=== PATIENT | male | born 1965 ===

== ENCOUNTER 2019-07-22 18:07 | Emergency (ER) | payer SELFPAY ==
--- NOTE | 2019-07-22 18:40 | Event Note ---
ED Screening Note Date of service: 07/22/19 Time: 18:42 ED Screening Note: 53 yo M with hx of HIV presents to ED with complaint of chest pain, fatigue, COURTNEY after using alcohol, crack cocaine, marijuana, synthetic marijuana, and unknown pills over the last 3 days. This initial assessment/diagnostic orders/clinical plan/treatment(s) is/are subject to change based on patients health status, clinical progression and re- assessment by fellow clinical providers in the ED. Further treatment and workup at subsequent clinical providers discretion. Patient/guardian urged not to elope from the ED as their condition may be serious if not clinically assessed and managed. Initial orders include: EKG Labs CXR
[2019-07-22 19:00] LABS: Basophils # (Auto) 0.1 K/mm3 (0.0-0.1); Basophils % (Auto) 1.1 % (0.0-1.8); Eosinophils % (Auto) 0.3 % (0.0-4.3); Hematocrit 42.2 % (35.5-45.6); Hemoglobin 14.5 gm/dl (11.8-15.2); Lymphocytes # (Auto) 3.6 K/mm3 (1.2-5.4); Lymphocytes % (Auto) 29.6 % (13.4-35.0); Mean Corpuscular HGB Conc 34 % (32-34); Mean Corpuscular Volume 92 fl (84-94); Monocytes # (Auto) 1.1 K/mm3 (0.0-0.8); Monocytes % (Auto) 9.2 % (0.0-7.3); Platelet Count 157 K/mm3 (140-440); Red Blood Count 4.58 M/mm3 (3.65-5.03); Red Cell Distribution Width 13.7 % (13.2-15.2)
[2019-07-22 19:12] LABS: INR 1.07 (0.87-1.13)
--- NOTE | 2019-07-22 19:26 | XRay Report ---
CHEST 2 VIEWS INDICATION / CLINICAL INFORMATION: chest pain. COMPARISON: None available. FINDINGS: SUPPORT DEVICES: None. HEART / MEDIASTINUM: No significant abnormality. LUNGS / PLEURA: No significant pulmonary or pleural abnormality. No pneumothorax. ADDITIONAL FINDINGS: No significant additional findings. IMPRESSION: No acute finding. Signer Name: Buck Baca MD Signed: 07/22/2019 7:22 PM Workstation Name: [id number]
[2019-07-22 19:27] LABS: BUN/Creatinine Ratio 17; Blood Urea Nitrogen 20 mg/dL (9-20); Calcium 9.3 mg/dL (8.4-10.2); Hemolysis Index 9
--- NOTE | 2019-07-22 22:47 | Emergency Department Report ---
ED General Adult HPI - General Chief complaint: Chest Pain Stated complaint: NERVE PAIN Time Seen by Provider: 07/22/19 21:37 Source: patient Mode of arrival: Wheelchair Limitations: No Limitations - History of Present Illness Initial comments: This is a 53-year-old male with a history of HIV, sciatic nerve pain, and vascular disease of the bilateral shoulders, anxiety, who presents to the ED today complaining of some chest discomfort which he experienced yesterday that is now resolved today. Patient states for the past 3 days he has been taking dr lita such as crack cocaine, marijuana, alcohol and some unknown pills he is unsure of. Patient states that he is experiencing bilateral lower back pain from sciatica and possibly an anxiety attack. Patient states he was brought here by EMS disease just recently moved here and is start currently staying with his sister. Patient denies fevers/chills/nausea/vomiting/abdominal pain/chest pain/shortness of breath/dizziness or any other symptoms - Related Data Allergies Allergy/AdvReac Type Severity Reaction Status Date / Time albuterol Allergy Shortness Verified 07/22/19 18:10 of Breath ED Review of Systems ROS: Stated complaint: NERVE PAIN Other details as noted in HPI Comment: All other systems reviewed and negative ED Past Medical Hx - Past Medical History Previous Medical History?: Yes Additional medical history: HIV/ SCIACTIA NERVE PAIN AVASCULAR DIESASE - Surgical History Additional Surgical History: BILATERAL SHOULDER SURG LYPMH NODES REMOVED - Social History Smoking Status: Current Every Day Smoker Substance Use Type: Alcohol, Cocaine, Marijuana, Other ED Physical Exam - General Limitations: No Limitations General appearance: alert, in no apparent distress - Head Head exam: Present: atraumatic, normocephalic - Eye Eye exam: Present: normal appearance - ENT ENT exam: Present: mucous membranes moist - Neck Neck exam: Present: normal inspection - Respiratory Respiratory exam: Present: normal lung sounds bilaterally. Absent: respiratory distress - Cardiovascular Cardiovascular Exam: Present: regular rate, normal rhythm. Absent: systolic murmur, diastolic murmur, rubs, gallop - GI/Abdominal GI/Abdominal exam: Present: soft, normal bowel sounds - Rectal Rectal exam: Present: deferred - Extremities Exam Extremities exam: Present: normal inspection - Back Exam Back exam: Present: normal inspection - Neurological Exam Neurological exam: Present: alert, oriented X3 - Psychiatric Psychiatric exam: Present: normal affect, normal mood - Skin Skin exam: Present: warm, dry, intact, normal color. Absent: rash ED Course Vital Signs 07/22/19 18:16 Temperature 97.7 F Pulse Rate 75 Respiratory 24 Rate Blood Pressure 104/72 O2 Sat by Pulse 96 Oximetry ED Medical Decision Making - Lab Data Result diagrams: 07/22/19 18:50 07/22/19 18:50 Laboratory Last Values WBC 12.3 K/mm3 (4.5-11.0) H 07/22/19 18:50 RBC 4.58 M/mm3 (3.65-5.03) 07/22/19 18:50 Hgb 14.5 gm/dl (11.8-15.2) 07/22/19 18:50 Hct 42.2 % (35.5-45.6) 07/22/19 18:50 MCV 92 fl (84-94) 07/22/19 18:50 MCH 32 pg (28-32) 07/22/19 18:50 MCHC 34 % (32-34) 07/22/19 18:50 RDW 13.7 % (13.2-15.2) 07/22/19 18:50 Plt Count 157 K/mm3 (140-440) 07/22/19 18:50 Lymph % (Auto) 29.6 % (13.4-35.0) 07/22/19 18:50 [place] % (Auto) 9.2 % (0.0-7.3) H 07/22/19 18:50 Eos % (Auto) 0.3 % (0.0-4.3) 07/22/19 18:50 Baso % (Auto) 1.1 % (0.0-1.8) 07/22/19 18:50 Lymph # 3.6 K/mm3 (1.2-5.4) 07/22/19 18:50 [place] # 1.1 K/mm3 (0.0-0.8) H 07/22/19 18:50 Eos # 0.0 K/mm3 (0.0-0.4) 07/22/19 18:50 Baso # 0.1 K/mm3 (0.0-0.1) 07/22/19 18:50 Seg Neutrophils % 59.8 % (40.0-70.0) 07/22/19 18:50 Seg Neutrophils # 7.4 K/mm3 (1.8-7.7) 07/22/19 18:50 PT 14.0 Sec. (12.2-14.9) 07/22/19 18:50 INR 1.07 (0.87-1.13) 07/22/19 18:50 APTT 26.0 Sec. (24.2-36.6) 07/22/19 18:50 Sodium 138 mmol/L (137-145) 07/22/19 18:50 Potassium 3.4 mmol/L (3.6-5.0) L 07/22/19 18:50 Chloride 99.2 mmol/L (98-107) 07/22/19 18:50 Carbon Dioxide 20 mmol/L (22-30) L 07/22/19 18:50 Anion Gap 22 mmol/L 07/22/19 18:50 BUN 20 mg/dL (9-20) 07/22/19 18:50 Creatinine 1.2 mg/dL (0.8-1.5) 07/22/19 18:50 Estimated GFR > 60 ml/min 07/22/19 18:50 BUN/Creatinine Ratio 17 % 07/22/19 18:50 Glucose 72 mg/dL (75-100) L 07/22/19 18:50 Calcium 9.3 mg/dL (8.4-10.2) 07/22/19 18:50 Troponin T < 0.010 ng/mL (0.00-0.029) 07/22/19 21:29 Plasma/Serum Alcohol < 0.01 % (0-0.07) 07/22/19 23:06 - Radiology Data Radiology results: report reviewed, image reviewed - Medical Decision Making This 53-year-old male who presents with multiple substance abuse presents to ED. Patient states labs are all within normal limits. Patient is refusing to give urine sample stating he does not want to. Patient received IV fluids, lorazepam in the ED. Patient was resting and sleeping comfortably in the ED bed after administration. Discussed the patient is to follow-up with primary care physician, infectious disease doctor for management of his HIV. Resource days was also given to patient to help with substance abuse. Vital signs are normal patient is in no acute distress. Is ambulatory without any problems. Patient is speaking in clear sentences. Patient had no neurological deficit. Critical care attestation.: If time is entered above; I have spent that time in minutes in the direct care of this critically ill patient, excluding procedure time. ED Disposition Clinical Impression: Substance abuse, Sciatic nerve pain Disposition: DC-01 TO HOME OR SELFCARE Is pt being admited?: No Does the pt Need Aspirin: No Condition: Stable Instructions: Polysubstance Abuse (ED), Arthralgia (ED) Additional Instructions: Make sure to follow up with the primary care physician as discussed. Follow-up with infectious disease doctor management HIV. If you have any worsening symptoms or develop new symptoms please return to ED immediately. Referrals: RAFA ELLIS MD [Primary Care Provider] - 3-5 Days [facility] [Outside] - 3-5 Days [facility] [Outside] - 3-5 Days [facility] [Outside] - 3-5 Days [facility] [Outside] - 3-5 Days Forms: Accompanied Note, Work/School Release Form(ED) Time of Disposition: 00:35
[2019-07-22] MEDS ORDERED: LORazepam 1 MG TAB PO ONE (22:48)
[2019-07-22] MEDS ORDERED: LORazepam 2 MG/ML VIAL IV ONE (22:54)
[2019-07-22] MEDS ORDERED: SODIUM CHLORIDE 0.9% 1000 ML 1,000 ML IV ONE (22:54)
[2019-07-22] MEDS ORDERED: THIAMINE 100 MG in SODIUM CHLORIDE 0.9% 50 ML IV ONE (22:54)
[2019-07-23 01:29] VITALS: BP 116/82
== END 2019-07-23 00:25 | disposition home or self-care (01) ==
LOC: ED 18:07
DX: G58.8 Other specified mononeuropathies (principal); F12.10 Cannabis abuse, uncomplicated; F14.10 Cocaine abuse, uncomplicated; F17.200 Nicotine dependence, unspecified, uncomplicated; Z88.6 Allergy status to analgesic agent
CPT/HCPCS: 36415; 71046; 80048; 84484; 85025; 85610; 85730; 93005; 93010; 96365; 96375; 99284; J2060; J3411; J7030; 80320; G0480